=== PATIENT | male | born 1990 | race Caucasian/White ===

== ENCOUNTER 2021-05-26 17:48 | Emergency (ER) | payer OTHER ==
[2021-05-26] MEDS ORDERED: CYCLOBENZAPRINE10 MG PO (20:29)
[2021-05-26] MEDS ORDERED: MEDROL 4MG DOSEP4 MG PO (20:29)
== END 2021-05-26 20:50 | disposition home or self-care (01) ==
LOC: FER 17:48
DX: S13.4XXA Sprain of ligaments of cervical spine, initial encounter (principal); S23.3XXA Sprain of ligaments of thoracic spine, initial encounter; S33.5XXA Sprain of ligaments of lumbar spine, initial encounter; Z28.310 Unvaccinated for COVID-19; V89.2XXA Person injured in unspecified motor-vehicle accident, traffic, initial encounter
CPT/HCPCS: 70450; 72125; 72128; 72131; 73030